=== PATIENT | male | born 1955 | race African-American/Black ===

== ENCOUNTER 2024-04-09 16:37 | Inpatient (IN) | payer OTHER ==
[~2024-04-09] VITALS: Ht 175.3 cm; Wt 78.0 kg
[2024-04-09] MEDS ORDERED: MIDODRINE (16:46)
[2024-04-09] MEDS ORDERED: ALLOPURINOL (16:46)
[2024-04-09] MEDS ORDERED: GLIPIZIDE (16:46)
[2024-04-09] MEDS ORDERED: ELIQUIS (16:46)
[2024-04-09] MEDS ORDERED: AMIODARONE (16:46)
[2024-04-09] MEDS ORDERED: BRILINTA (16:46)
[2024-04-09] MEDS ORDERED: ASPIRIN (16:46)
[2024-04-09 17:55] LABS: BASOPHILS % 0.6 % (0.0-2.0); EOSINOPHILS % 2.4 % (0.0-5.0); HEMATOCRIT. 33.6 % (42.0-52.0); LYMPHOCYTES % 9.3 % (20.0-50.0); MEAN CORPUSCULAR HEMOGLOBIN 27.7 pg (28.0-32.0); MEAN CORPUSCULAR HGB CONC 32.7 g/dL (31.0-37.0); MEAN CORPUSCULAR VOLUME 84.7 fL (80.0-94.0); MONOCYTES % 10.2 % (2.0-8.0); NEUTROPHILS % 77.5 % (40.0-76.0); PLATELET 490 x1000/uL (130-400); RED BLOOD CELL COUNT 3.97 mill/uL (4.7-6.1); RED CELL DISTRIBUTION WIDTH 16.7 % (11.6-14.6); WHITE BLOOD COUNT 10.7 x1000/uL (4.5-11.0)
[2024-04-09 18:04] LABS: CHLORIDE 103 mEq/L (98-107); POTASSIUM 4.2 mEq/L (3.5-5.1); SODIUM 138 mEq/L (136-145)
[2024-04-09 18:05] LABS: CALCIUM 9.5 mg/dL (8.7-10.4); CARBON DIOXIDE 25 mEq/L (21-32)
[2024-04-09 18:10] LABS: CREATININE 3.6 mg/dL (0.6-1.3); GLUCOSE 149 mg/dL (70-105); UREA NITROGEN BLOOD 59 mg/dL (9-23)
[2024-04-09 18:12] LABS: ALANINE AMINOTRANSFERASE 14 IU/L (10-49); ASPARTATE AMINOTRANSFERASE 20 IU/L (<34); BILIRUBIN DIRECT 0.5 mg/dL (<=3.0)
[2024-04-09 18:13] LABS: BILIRUBIN TOTAL 1.3 mg/dL (0.1-1.0); PROTEIN TOTAL 6.7 g/dL (6.0-8.3)
[2024-04-09 18:24] LABS: TROPONIN I HIGH SENSITIVITY 4845 ng/L (3.0-53)
[2024-04-09] MEDS: MORPHINE SULFATE 4 MG/ML INJ (FOR IV/IM USE) IV ONE (18:56)
[2024-04-09] MEDS: ENOXAPARIN 60MG/0.6ML SYR SUBCUT NR (19:17)
[2024-04-09 23:22] VITALS: BP 111/85; PULSE 91; RESP 18; TEMP 97
[2024-04-09 23:30] VITALS: BP 111/85; PULSE 91; RESP 18; TEMP 97
[2024-04-10 03:54] VITALS: BP 115/90; PULSE 91; RESP 14
[2024-04-10] MEDS ORDERED: ACETAMINOPHEN 325MG TABLET PO PRN (09:15)
[2024-04-10] MEDS ORDERED: DIPHENHYDRAMINE 50MG/ML VIAL IV PRN (09:15)
[2024-04-10] MEDS ORDERED: IPRATROPIUM/ALBUTEROL 0.5-3(2.5)MG/3ML NEB HHN PRN (09:15)
[2024-04-10] MEDS ORDERED: CLONIDINE 0.1MG TABLET PO PRN (09:15)
[2024-04-10] MEDS ORDERED: ONDANSETRON HCL 4MG/2ML INJ IV PRN (09:15)
[2024-04-10 09:45] VITALS: BP 117/89; PULSE 86; RESP 20; TEMP 97.1
[2024-04-10] MEDS: FUROSEMIDE 40MG/4ML VIAL IV SCH (10:33)
[2024-04-10 11:50] LABS: POTASSIUM 4.7 mEq/L (3.5-5.1)
[2024-04-10 11:51] LABS: CALCIUM 10.1 mg/dL (8.7-10.4)
[2024-04-10 11:56] LABS: CREATININE 3.6 mg/dL (0.6-1.3)
[2024-04-10 12:00] VITALS: BP 119/80; PULSE 84; RESP 20; TEMP 97.6
[2024-04-10 16:00] VITALS: BP 135/91; PULSE 90; RESP 18; TEMP 97
[2024-04-10] MEDS ORDERED: APIX5TAB PO (17:12)
[2024-04-10] MEDS ORDERED: AMLO5TAB88 PO (17:12)
[2024-04-10] MEDS ORDERED: HYDR50TA39 PO (17:12)
[2024-04-10] MEDS ORDERED: ATOR40TA70 PO (17:12)
[2024-04-10] MEDS ORDERED: CHOL100046 PO (17:12)
[2024-04-10] MEDS ORDERED: GLIP5TAB22 PO (17:12)
[2024-04-10] MEDS ORDERED: ASPI-1406 PO (17:12)
[2024-04-10] MEDS ORDERED: LABE100T9 PO (17:12)
[2024-04-10] MEDS ORDERED: ALLO100T PO (17:12)
[2024-04-10 20:00] VITALS: BP 108/77; PULSE 20; RESP 20; TEMP 98.6
[2024-04-10] MEDS: ZOLPIDEM TARTRATE 5MG TABLET PO PRN (23:41)
[2024-04-11] VITALS: BP 121/75; PULSE 91; RESP 20; TEMP 98.4
[2024-04-11 04:18] VITALS: BP 107/85; PULSE 87; RESP 18; TEMP 96.8
[2024-04-11 08:09] VITALS: BP 120/82; PULSE 86; RESP 20; TEMP 97.8
[2024-04-11 08:52] LABS: BASOPHILS % 0.7 % (0.0-2.0); EOSINOPHILS % 5.3 % (0.0-5.0); HEMATOCRIT. 36.5 % (42.0-52.0); HEMOGLOBIN. 11.4 g/dL (14.0-18.0); LYMPHOCYTES % 14.7 % (20.0-50.0); MEAN CORPUSCULAR HEMOGLOBIN 26.8 pg (28.0-32.0); MEAN CORPUSCULAR HGB CONC 31.3 g/dL (31.0-37.0); MEAN CORPUSCULAR VOLUME 85.6 fL (80.0-94.0); MEAN PLATELET VOLUME 8.8 fl (7.4-10.4); MONOCYTES % 10.7 % (2.0-8.0); NEUTROPHILS % 68.6 % (40.0-76.0); PLATELET 469 x1000/uL (130-400); RED BLOOD CELL COUNT 4.27 mill/uL (4.7-6.1); RED CELL DISTRIBUTION WIDTH 17.2 % (11.6-14.6); WHITE BLOOD COUNT 9.4 x1000/uL (4.5-11.0)
[2024-04-11 08:58] LABS: CHLORIDE 104 mEq/L (98-107); POTASSIUM 4.9 mEq/L (3.5-5.1); SODIUM 138 mEq/L (136-145)
[2024-04-11 09:00] LABS: CALCIUM 9.6 mg/dL (8.7-10.4); CARBON DIOXIDE 23 mEq/L (21-32)
[2024-04-11 09:05] LABS: CREATININE 3.8 mg/dL (0.6-1.3); GLUCOSE 171 mg/dL (70-105); PROTEIN TOTAL 6.7 g/dL (6.0-8.3); UREA NITROGEN BLOOD 57 mg/dL (9-23)
[2024-04-11 09:06] LABS: ALANINE AMINOTRANSFERASE 12 IU/L (10-49); ALBUMIN 4.1 g/dL (3.2-4.8); ASPARTATE AMINOTRANSFERASE 15 IU/L (<34)
[2024-04-11 09:07] LABS: BILIRUBIN DIRECT 0.4 mg/dL (<=3.0); CREATINE KINASE 67 IU/L (46-171); PHOSPHORUS 3.7 mg/dL (2.5-4.9)
[2024-04-11 09:08] LABS: BILIRUBIN TOTAL 0.9 mg/dL (0.1-1.0)
[2024-04-11 09:09] LABS: INR 1.3; PROTHROMBIN TIME 13.8 sec (9.6-11.0)
[2024-04-11 12:26] VITALS: BP 106/78; PULSE 88; RESP 18; TEMP 97.8
[2024-04-11 16:09] VITALS: BP 126/88; PULSE 92; RESP 18; TEMP 97.6
[2024-04-11 17:26] LABS: TROPONIN I HIGH SENSITIVITY 3594 ng/L (3.0-53)
[2024-04-11 17:51] LABS: CLARITY URINE CLEAR (CLEAR); COLOR URINE YELLOW (YELLOW); GLUCOSE URINE NEGATIVE (NEGATIVE); KETONES URINE NEGATIVE (NEGATIVE); LEUKOCYTE ESTERASE URINE NEGATIVE (NEGATIVE); NITRITE URINE NEGATIVE (NEGATIVE); OCCULT BLOOD URINE NEGATIVE (NEGATIVE); PROTEIN URINE 1+ (NEGATIVE); SPECIFIC GRAVITY URINE 1.017 (1.005-1.030)
[2024-04-11 18:33] LABS: BACTERIA URINE 2+; RBC URINE 0-2 /hpf (0-2); SQUAMOUS EPITHELIAL CELL URINE 1+ /lpf (RARE/1+)
[2024-04-11 20:00] VITALS: BP 123/57; PULSE 48; RESP 18; TEMP 97.8
[2024-04-12] VITALS (7 sets, daily range): BP systolic 106–139; BP diastolic 70–88; PULSE 80–92; RESP 18–20; TEMP 97.7–98.2
[2024-04-12 07:52] LABS: BASOPHILS % 0.7 % (0.0-2.0); EOSINOPHILS % 6.6 % (0.0-5.0); HEMATOCRIT. 35.5 % (42.0-52.0); HEMOGLOBIN. 11.4 g/dL (14.0-18.0); LYMPHOCYTES % 14.5 % (20.0-50.0); MEAN CORPUSCULAR HEMOGLOBIN 26.9 pg (28.0-32.0); MEAN PLATELET VOLUME 9.1 fl (7.4-10.4); MONOCYTES % 10.7 % (2.0-8.0); NEUTROPHILS % 67.5 % (40.0-76.0); PLATELET 425 x1000/uL (130-400); RED BLOOD CELL COUNT 4.23 mill/uL (4.7-6.1); RED CELL DISTRIBUTION WIDTH 16.6 % (11.6-14.6)
[2024-04-12 07:58] LABS: CHLORIDE 105 mEq/L (98-107); POTASSIUM 4.2 mEq/L (3.5-5.1); SODIUM 138 mEq/L (136-145)
[2024-04-12 08:02] LABS: CALCIUM 9.1 mg/dL (8.7-10.4); CARBON DIOXIDE 24 mEq/L (21-32)
[2024-04-12 08:07] LABS: CREATININE 3.3 mg/dL (0.6-1.3); GLUCOSE 151 mg/dL (70-105); UREA NITROGEN BLOOD 63 mg/dL (9-23)
[2024-04-12 08:09] LABS: ALANINE AMINOTRANSFERASE 11 IU/L (10-49); ALBUMIN 3.9 g/dL (3.2-4.8); ASPARTATE AMINOTRANSFERASE 15 IU/L (<34); BILIRUBIN DIRECT 0.3 mg/dL (<=3.0); BILIRUBIN TOTAL 0.7 mg/dL (0.1-1.0); PHOSPHORUS 3.7 mg/dL (2.5-4.9); PROTEIN TOTAL 6.2 g/dL (6.0-8.3)
[2024-04-12 13:16] LABS: *AMPHETAMINES SCREEN URINE NEGATIVE (NEGATIVE); *BARBITURATES SCREEN URINE NEGATIVE (NEGATIVE); *BENZODIAZEPINES SCREEN URINE NEGATIVE (NEGATIVE); *COCAINE SCREEN URINE NEGATIVE (NEGATIVE); CANNABINOID URINE SCREEN NEGATIVE (NEGATIVE); METHADONE URINE SCREEN NEGATIVE (NEGATIVE); OPIATES URINE SCREEN NEGATIVE (NEGATIVE); PHENCYCLIDINE URINE SCREEN NEGATIVE (NEGATIVE)
[2024-04-12 13:17] LABS: ECSTASY MDMA SCREEN URINE NEGATIVE (NEGATIVE)
[2024-04-13] VITALS: BP 129/89; PULSE 74; RESP 20; TEMP 97.5
[2024-04-13 04:00] VITALS: BP 130/87; PULSE 85; RESP 18; TEMP 98
[2024-04-13 08:00] VITALS: BP 123/78; PULSE 87; RESP 18; TEMP 97.5
[2024-04-13 12:01] VITALS: BP 123/78; PULSE 87; TEMP 97.5; O2SAT 95
[2024-04-18] MEDS ORDERED: CLOP-31 PO (11:58)
[2024-04-18] MEDS ORDERED: COR3 PO (11:58)
[2024-04-18] MEDS ORDERED: FURO-151 MT (11:58)
== END 2024-04-13 15:02 | disposition hospice, home (50) | DRG 280 ==
LOC: ER 16:37 → EDBEDREQ 17:26 → EDBEDREQTM 18:32 → EDBEDREQ 18:32 → 5WST 21:41 → 8WST 04-10 09:25
PROVIDERS: ADMIT Internal Medicine; ATTEND Internal Medicine
DX: I21.4 Non-ST elevation (NSTEMI) myocardial infarction (principal); I50.21 Acute systolic (congestive) heart failure; I13.0 Hypertensive heart and chronic kidney disease with heart failure and stage 1 through stage 4 chronic kidney disease, or unspecified chronic kidney disease; N17.9 Acute kidney failure, unspecified; D64.9 Anemia, unspecified; Z51.5 Encounter for palliative care; E11.22 Type 2 diabetes mellitus with diabetic chronic kidney disease; Z20.822 Contact with and (suspected) exposure to COVID-19; E78.5 Hyperlipidemia, unspecified; N18.9 Chronic kidney disease, unspecified; I25.10 Atherosclerotic heart disease of native coronary artery without angina pectoris; N40.0 Benign prostatic hyperplasia without lower urinary tract symptoms; Z86.73 Personal history of transient ischemic attack (TIA), and cerebral infarction without residual deficits; Z98.61 Coronary angioplasty status; Z79.899 Other long term (current) drug therapy; Z79.4 Long term (current) use of insulin; Z82.49 Family history of ischemic heart disease and other diseases of the circulatory system; Z83.3 Family history of diabetes mellitus
CPT/HCPCS: 36415; 71045; 71250; 76770; 80048; 80076; 80305; 81003; 82550; 83735; 83880; 84100; 84484; 85025; 87426; 93005; 93306; 93970; 99291; J1650; J1940; J2270